=== PATIENT | male | born 1980 ===

== ENCOUNTER → 2022-10-29 08:44 | Outpatient (CLI) | payer MEDICARE, MEDICAID, SELFPAY ==
--- NOTE | ~2022-10-29 | MR_ITS ---
MRI of the right knee Clinical history: Pain Technique: Coronal proton density and proton density-weighted images, sagittal proton-density and T2 fat-sat images, and axial proton-density fat-saturated images were acquired. Findings: Anterior and posterior cruciate ligaments are intact. Medial collateral ligament and the la teral collateral ligament complex are intact. Popliteus tendon is intact. Medial and lateral menisci are intact, without evidence of tear. Articular cartilage in the lateral compartment is well preserved. There is moderate to high-grade cho ndral malacia the central to posterior aspect of the medial femoral condyle. 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 Patellar articular cartilage demonstrates grade 1 chondrom alacia over the medial facet. Tricompartmental osteophytes are present. Extensor mechanism is intact. There is minimal joint effusion. No Allen's cyst. Impression: Moderate osteoarthritis of the knee, as detailed above. Reviewed, dictated and finalized at [facility]. Impression: Moderate osteoarthritis of the knee, as detailed above.
== END ==
PROVIDERS: PCP Family Medicine; Visit Provider Orthopaedic Surgery
DX: M17.11 Unilateral primary osteoarthritis, right knee (principal)
CPT/HCPCS: 73721